=== PATIENT | female | born 1990 | race Two or more races ===

== ENCOUNTER 2024-04-30 14:58 | Outpatient (AMB) | payer OTHER, SELFPAY ==
--- NOTE | 2024-04-30 15:00 | PD.RESCLINIC ---
Allergies/Meds Allergies & Medications Allergies No Known Allergies Allergy (Verified 04/30/24 15:18) Medication Reconciliation tirzepatide (weight loss) 7.5 mg/0.5 mL subcutaneous pen injector (Zepbound) 7.5 mg (0.5 mL) subcut QWEEK #2 mL 03/10/24 [Rx Confirmed 04/30/24] MA Intake Visit Data Collection New Patient or Established: Established Patient (seen at [facility] within 3 years) Seen by Clinical Staff ONLY (RN/MA): No Pain Present Currently: Yes Pain Location: Abdomen PCP or OBGYN visit in last 3 months: Yes Do You Feel Safe at Home: Yes Authorities Contacted: N/A Smoking Status Smoking Status: Never smoker For Televisit only Telemed Video/Phone Visit: Yes Verbal consent obtained for Telemed visit?: Yes Verbal Consent witness name: maty Telemed Video/Phone visit w/Clinical Staff: 21-30 min Immunization / Flu Flu Vaccine in the Last 12 Months: Yes Flu Vaccine Exclusion Criteria: Already Received Past Medical History Past Medical History CARDIAC: Negative Cardiac Disorders or Congestive Heart Failure RESPIRATORY: Negative Chronic Obstructive Pulmonary Disease (COPD) or Asthma GENITOURINARY: Negative Renal Disease ENDOCRINE: Negative Diabetes Mellitus Type 1 or Diabetes Mellitus Type 2 HEMATOLOGIC: Positive Leukemia; Negative Sickle Cell Disease Social History SMOKING STATUS: Smoking status: Never smoker LIVES WITH: Lives With: Spouse Patient Portal Questionaires Social History Tobacco History Smoking Status: Never smoker Domestic Abuse History Do You Feel Safe at Home: Yes Review of Systems Report any current symptoms Only answer those that you have currently: Past Medical History Past Medical History Have you ever been diagnosed with any of the following: Cardiology Problems Congestive Heart Failure: No Respiratory Problems Chronic Obstructive Pulmonary Disease (COPD): No Asthma: No Genital/Urinary Problems Renal Disease: No Endocrine Problems Diabetes Mellitus Type 1: No Diabetes Mellitus Type 2: No Blood Problems Leukemia: Yes Sickle Cell Disease: No History of Present Illness HPI Narrative 04/30/24: This Patient is a 33 year old female who consents for tele visit. She calls in regards to recurrent abdominal pain and 2 recent ER visits, once at [facility] (04/05) where she was admitted, and once at [facility] (04/26), where she was discharged with pain meds. At [facility], patient had abd US that revealed cholelithiasis without cholecystitis. CT and MRCP revealed acalculous cholecystitis. She received pain meds with improvement, as well as zosyn x1. General surgey evaluated Patient, and stated Patient can follow up outpatient for elective cholecystectomy. Patient was observed overnight with improvement in pain, and discharged. On 04/26, patient had another episode of RUQ abdominal pain and was seen at [facility] ER. US was done and revealed cholelithiasis without cholecystitis. As patient is a travel nurse, currently working in [place], will send referral and imaging from [facility] to Dr. Joseph Morales in [place] ([facility]). Review of Systems Review of Systems Systems Reviewed: All systems reviewed, normal except as documented Objective/Exam Narrative Physical exam: Televisit Assessment & Plan Diagnosis / Problem List (1) Cholelithiases: Status: Acute Assessment & Plan: -Patient had a tele appointment for referral -US that revealed cholelithiasis without cholecystitis. CT and MRCP revealed acalculous cholecystitis. She received pain meds with improvement, as well as zosyn x1. General surgery evaluated Patient, and stated Patient can follow up outpatient for elective cholecystectomy. Patient was observed overnight with improvement in pain, and discharged. -On 04/26, patient had another episode of RUQ abdominal pain and was seen at [facility] ER. US was done and revealed cholelithiasis without cholecystitis. -As patient is a travel nurse, currently working in [place], will send referral and imaging from [facility] to Dr. Joseph Morales in [place] ([facility]). Plan: -Send referral to surgeon in [place] as patient is currently working in [place]. -- Patient was discussed with attending Physician, Dr Eric Lopez MD PGY2 Orders: Referrals General surgery K80.20 - Calculus of gallbladder without cholecystitis without obstruction Additional Assessment Attending note: I, Hunter Cortez MD, attest that I was physically present for the guillen portions of the service completed via telehealth, and I reviewed and discussed the case with the resident and agree with the resident's plans of care as documented above. Patient is a travel nurse working in [place]. Has had multiple episodes of right upper quadrant pain attributed to cholelithiasis and cholecystitis. We will send records to general surgeon in [place] for patient to be able to have this done. Ultrasounds have shown cholelithiasis, CT and MRCP during prior admission revealed acalculous cholecystitis. Hunter Cortez MD Physician Billing Established Patient Established Patient: E/M Level 2-CPT 89782 Office Procedures [facility] Level of Care Nursing/Assessment Patient Status: Established Patient Nursing Assessment/Reassessment: Medication Reconciliation and Update PMH in EMR Coordination of Care: Complex Care and Chronic Disease 1-5, Education Complex Pt/Fam, 1 Ins Authorization, Ref for ancillary service and Staff clarify orders Established Patient Charge Established Patient Point Assignment: 105 Telehealth Telemed Phone/Video with patient at home & Dr,PA,SKINNING MACHINE FEEDER: Yes
== END 2024-04-30 15:39 | disposition home or self-care (01) ==
LOC: HODAHC 14:58
PROVIDERS: Supervising Provider Internal Medicine; Visit Provider Student in an Organized Health Care Education/Training Program
DX: K80.20 Calculus of gallbladder without cholecystitis without obstruction (principal)
CPT/HCPCS: 99212; G0463

== ENCOUNTER 2024-09-02 09:29 | Outpatient (AMB) | payer BC, SELFPAY ==
--- NOTE | 2024-09-02 09:33 | ACNOTE_ITS ---
Vital Signs 09/02/24 09:34 Height 1.6 m Height Method Stated Weight 77.734 kg Weight Measurement Method Standing Scale BMI 30.3 BP 111/76 Blood Pressure Source Automatic Cuff Blood Pressure Location Left Upper Arm Position Sitting Respiration 16 Pulse 95 Pulse Source Monitor Temp 98.2 F Temp Source Temporal Artery Scan Pulse Oximetry (%) 98 Oxygen Delivery Method Room Air Allergies/Meds Allergies & Medications Allergies No Known Allergies Allergy (Verified 09/02/24 09:42) Medication Reconciliation tirzepatide (weight loss) 7.5 mg/0.5 mL subcutaneous pen injector (Zepbound) 7.5 mg (0.5 mL) subcut QWEEK #2 mL 03/10/24 [Rx Confirmed 09/02/24] MA Intake Visit Data Collection New Patient or Established: Established Patient (seen at [facility] within 3 years) Seen by Clinical Staff ONLY (RN/MA): No Pain Present Currently: No Pain scale:: 0 Pain Scale Used: [employer]/Numerical Server Cashier Required: No PCP or OBGYN visit in last 3 months: No Hx Now: No Do You Feel Safe at Home: Yes Authorities Contacted: N/A Smoking Status Smoking Status: Never smoker Immunization / Flu Flu Vaccine in the Last 12 Months: No Flu Vaccine Exclusion Criteria: No Exclusion Criteria Past Medical History Past Medical History CARDIAC: Negative Cardiac Disorders or Congestive Heart Failure RESPIRATORY: Negative Chronic Obstructive Pulmonary Disease (COPD) or Asthma GENITOURINARY: Negative Renal Disease ENDOCRINE: Negative Diabetes Mellitus Type 1 or Diabetes Mellitus Type 2 HEMATOLOGIC: Positive Leukemia; Negative Sickle Cell Disease Social History SMOKING STATUS: Smoking status: Never smoker LIVES WITH: Lives With: Spouse Patient Portal Questionaires Social History Tobacco History Smoking Status: Never smoker Domestic Abuse History Do You Feel Safe at Home: Yes Review of Systems Report any current symptoms Only answer those that you have currently: Past Medical History Past Medical History Have you ever been diagnosed with any of the following: Cardiology Problems Congestive Heart Failure: No Respiratory Problems Chronic Obstructive Pulmonary Disease (COPD): No Asthma: No Genital/Urinary Problems Renal Disease: No Endocrine Problems Diabetes Mellitus Type 1: No Diabetes Mellitus Type 2: No Blood Problems Leukemia: Yes Sickle Cell Disease: No Assessment & Plan Diagnosis / Problem List (1) Encounter for routine adult health examination: Status: Acute Orders: Orders Comprehensive Metabolic Panel Today Z00.00 - Encounter for general adult medical examination without abnormal findings Vitamin D 25 Hydroxy Total Today Z00.00 - Encounter for general adult medical examination without abnormal findings CBC Today Z00.00 - Encounter for general adult medical examination without abnormal findings Ambulatory Hemoglobin A1C Today Z00.00 - Encounter for general adult medical examination without abnormal findings Lipid Panel Today Z00.00 - Encounter for general adult medical examination without abnormal findings Thyroid Stimulating Hormone Today Z00.00 - Encounter for general adult medical examination without abnormal findings Office Procedures [facility] Level of Care Nursing/Assessment Patient Status: Established Patient Nursing Assessment/Reassessment: Medication Reconciliation, Update PMH in EMR and Vital Signs Coordination of Care: Complex Care and Chronic Disease 1-5, Consent,records obtained, informed consent, Education Simp Pt/Fam and Staff clarify orders Established Patient Charge Established Patient Point Assignment: 85 Established Patient Point Charge: Level 3 (80-115)
[2024-09-02 09:34] VITALS: BP 111/76; PULSE 95; RESP 16; TEMP 36.8; O2SAT 98; BMI 30.3
== END 2024-09-02 10:07 | disposition home or self-care (01) ==
LOC: HODAHC 09:29
PROVIDERS: Supervising Provider Student in an Organized Health Care Education/Training Program; Visit Provider Student in an Organized Health Care Education/Training Program
DX: Z00.00 Encounter for general adult medical examination without abnormal findings (principal)
CPT/HCPCS: 99213; G0463

== ENCOUNTER → 2024-09-02 | Outpatient (CLI) | payer BC, SELFPAY ==
[2024-09-02 11:19] LABS: Basophils # (Auto) 0.1 Thou/mm3 (0.0-0.2); Basophils % (Auto) 1 % (0-2.5); Eosinophils # (Auto) 0.2 Thou/mm3 (0.0-0.5); Eosinophils % (Auto) 2 % (0-10); Hematocrit 39.5 % (36.0-46.0); Immature Granulocytes % (Auto) 1 % (0-0); Immature Granulocytes Auto 0.09 Thou/mm3 (0.00-0.00); Lymphocytes % (Auto) 24 % (10-50); Mean Corpuscular HGB Conc 35.4 g/dl (31.0-37.0); Mean Corpuscular Hemoglobin 30.2 pg (25.0-35.0); Mean Corpuscular Volume 85 fL (80-100); Monocytes # (Auto) 0.4 Thou/mm3 (0.0-0.8); Monocytes % (Auto) 5 % (0-12); Neutrophils # (Auto) 5.5 Thou/mm3 (1.8-7.7); Neutrophils % (Auto) 67 % (37-80); Nucleated Red Blood Cell % 0 /100 WBC (0); Platelet Count 318 Thou/mm3 (140-440); Red Blood Count 4.64 Miln/mm3 (4.00-5.20); White Blood Count 8.2 Thou/mm3 (3.6-11.0)
[2024-09-02 12:24] LABS: Glucose Estimated Average 103 mg/dL (80-131); Hemoglobin A1C 5.2 % Hgb (4.8-6.0)
[2024-09-02 12:36] LABS: Vitamin D 25 Hydroxy Total 8.2 ng/mL (7.3-40.2)
[2024-09-02 13:20] LABS: Alanine Aminotransferase 38 U/L (10-49); Albumin/Globulin Ratio 2.2 (1.2-2.2); Alkaline Phosphatase 80 U/L (46-116); Anion Gap 17 (7-16); Aspartate Amino Transferase 33 U/L (0-34); BUN/Creatinine Ratio 14 Ratio (12-20); Bilirubin,Total < 0.2 mg/dL (0.3-1.2); Blood Urea Nitrogen 11 mg/dL (9-23); Calcium 8.4 mg/dL (8.3-10.6); Calcium (Corrected) 8.4 mg/dL (8.5-10.1); Carbon Dioxide 18.5 mMol/L (20.0-31.0); Cardiac Risk Estimate 7.7 RATIO (3.7-5.6); Chloride 105 mMol/L (98-107); Cholesterol 240 mg/dL (132-200); Creatinine (Component) 0.8 mg/dL (0.6-1.3); Globulin 1.8 gm/dL (2.3-3.5); Glucose 90 mg/dL (74-106); HDL Cholesterol 31 mg/dL (40-60); Osmolality,Calculated 278 (275-295); Potassium 4.6 mMol/L (3.4-5.1); Sodium 140 mMol/L (136-145); Thyroid Stimulating Hormone 0.75 uIU/mL (0.55-4.78); Total Protein 5.8 gm/dL (5.7-8.2); Triglycerides 1655 mg/dL (30-150); eGFR > 60 See Note
== END | disposition home or self-care (01) ==
PROVIDERS: PCP Student in an Organized Health Care Education/Training Program; Referring Provider Student in an Organized Health Care Education/Training Program; Visit Provider Student in an Organized Health Care Education/Training Program
DX: Z00.00 Encounter for general adult medical examination without abnormal findings (principal)
CPT/HCPCS: 36415; 80053; 80061; 82306; 83036; 84443; 85025